=== PATIENT | female | born 2005 | race Caucasian/White ===

== ENCOUNTER 2024-04-30 10:11 | Emergency (ER) | payer OTHER, SELFPAY ==
[2024-04-30 10:19] VITALS: BP 132/88
[2024-04-30 10:54] VITALS: BMI 17.4
[2024-04-30 11:09] LABS: % Basophils 0.4 % (0-2); % Eosinophils 1.2 % (0-6); % Immature Granulocytes 0.3 % (0-0.5); % Lymphocytes 11.3 % (20.5-51.1); % Neutrophils 79.8 % (42.2-75.2); Absolute Basophils 0.1 10^3/uL (0-0.2); Absolute Eosinophils 0.1 10^3/uL (0-0.7); Absolute Lymphocytes 1.3 10^3/uL (1.2-3.4); Absolute Monocytes 0.8 10^3/uL (0.1-0.6); Absolute Neutrophils 9.1 10^3/uL (1.4-6.5); Hematocrit 37.5 % (37.0-47.0); Hemoglobin 12.7 g/dL (12.0-16.0); Mean Corp Hgb Conc. 33.9 g/dL (33.0-37.0); Mean Corpuscular Hgb 28.7 pg (27.0-31.0); Mean Corpuscular Volume 84.7 fL (81.0-99.0); Mean Platelet Volume 9.8 fL (7.4-10.4); Nucleated Red Blood Cells % 0 %; Platelet Count 315 10^3/uL (130-400); Red Blood Cell Count 4.43 10^6/uL (4.20-5.40); Red Cell Dist. Width 13.5 % (11.5-14.5); White Blood Cell Count 11.4 10^3/uL (4.8-10.8)
[2024-04-30 11:37] LABS: HCG, Serum Qualitative Screen Negative
[2024-04-30 11:41] LABS: ALT (SGPT) 15 U/L (0-35); AST (SGOT) 22 U/L (14-36); Albumin 4.6 g/dl (3.5-5.0); Alkaline Phosphatase 75 U/L (38-126); Blood Urea Nitrogen 11 mg/dl (7-17); Carbon Dioxide 26 mmol/L (22-30); Chloride 106 mmol/L (98-107); Estimated Creatinine Clearance 99 ml/min; Glucose 101 mg/dl (70-99); Lipase 40 U/L (23-300); Potassium 4.1 mmol/L (3.5-5.1); Sodium 139 mmol/L (135-145); Total Bilirubin 0.5 mg/dl (0.2-1.3); Total Protein 7.1 g/dl (6.3-8.2); eGFR > 60.00
[2024-04-30 11:57] LABS: Urine Albumin Negative (Neg - Trace); Urine Bilirubin Negative (Negative); Urine Character Clear (Clear); Urine Color Yellow; Urine Glucose Negative (Negative); Urine Ketone Negative (Negative); Urine Leukocyte Trace (Negative); Urine Nitrite Negative (Negative); Urine Occult Blood Negative (Negative); Urine Urobilinogen Negative (Neg - 1+)
[2024-04-30] MEDS: OMNIPAQUE 50 ML PO (12:06)
[2024-04-30 12:18] LABS: Urine Bacteria Few (Negative)
--- NOTE | 2024-04-30 12:57 | ED.GENMED ---
History of Present Illness
General
Chief Complaint: Abdominal Symptoms
Source: patient
Exam Limitations: none
Time Seen by Provider: 04/30/24 11:48
Nursing documentation reviewed up to this point in time: agreed with
History of Present Illness
History of Present Illness:
18-year-old female with no significant past medical history states she has had right-sided abdominal pain for 2 weeks. At that time she was having her period and had cramps and thought it was related to that but her period has been gone for 10 days
and she still has persistent pain in the right side. She denies fever or chills. Pain is accompanied with 'a little' nausea and has had no vomiting. She denies constipation or diarrhea.
Past History
Past History
ED Past Medical History: None
ED Past Surgical History: None
Social History
Tobacco: Smoker
Alcohol: None
Personal: Single
Living: with family
Employment: Employed
Review of Systems
Review of Systems
Allergies reviewed?: Yes
All Other Systems: ROS reviewed and negative except as documented in HPI and ROS
Constitutional: Denies fever
Respiratory: Denies trouble breathing
Cardiac: Denies chest pain
ABD/GI: Reports abdominal pain and nausea; Denies vomiting, diarrhea, constipated, bloody stools, black stools or anorexia
: Reports no symptoms
Musculoskeletal: Reports no symptoms
Skin: Reports no symptoms
Neurological: Reports no symptoms
Phy Exam
Physical Exam
Physical Exam:
GENERAL: No acute distress. A&Ox3.
CONSTITUTIONAL: Afebrile.
EYES: clear, conjunctivae normal
ENMT: moist mucus membranes, Pharynx nl
RESPIRATORY: Regular respirations, nonlabored, lungs clear.
CARDIOVASCULAR: Regular rate and rhythm, no murmurs, no rubs.
GI: Soft, generally tender to palpation of the abdomen, no distention, no guarding, normal BS
MUSCULOSKELETAL: Moves with ease. Well perfused.
SKIN: Warm, dry, pink
PSYCH: Normal mood and affect. Well kept, interactive and appropriate
NEUROLOGIC: Awake, alert and oriented. No focal neurological deficits
Course
Orders/Labs/Results
Orders:
Orders
04/30/24 10:57
IV Insert/Care/Rem.- Treatment PRN
Test Result ONCE
04/30/24 11:02
Complete Blood Count/With Diff Urgent
Comprehensive Metabolic Panel Urgent
HCG, Serum Qualitative Screen Urgent
Comment: Notify provider if positive test present
Lipase Urgent
04/30/24 11:40
Urinalysis Reflex To Culture Urgent
Date Specimen was Collected: 04/30/24
Time Specimen was Collected: 11:27
Urine Microscopic Reflex Cult Urgent
04/30/24 11:59
Iohexol [Omnipaque] See Protocol PO NOW STA
04/30/24 13:33
CT Abd/pel W Iv And Oral Contr Urgent
Comment:
Reason For Exam: right side abd pain
Abnormal Lab Results
04/30/24 04/30/24
11:02 11:40
WBC 11.4 H 10^3/uL
(4.8-10.8)
Absolute Neuts (auto) 9.1 H 10^3/uL
(1.4-6.5)
Absolute Monos (auto) 0.8 H 10^3/uL
(0.1-0.6)
Neutrophils % 79.8 H %
(42.2-75.2)
Lymphocytes % 11.3 L %
(20.5-51.1)
Glucose 101 H mg/dl
(70-99)
Leukocyte Esterase Rfl Trace A
(Negative)
Urine RBC 3-6 A /HPF
(0-2)
Urine Bacteria (Reflex) Few A
(Negative)
04/30/24 11:02
04/30/24 11:02
Vital Signs
Initial and Last Documented VS:
Initial Vital Signs
Temp Pulse Resp BP Pulse Ox
98.0 F 84 16 132/88 98
04/30/24 10:19 04/30/24 10:19 04/30/24 10:19 04/30/24 10:19 04/30/24 10:19
Last Documented Vital Signs
Temp Pulse Resp BP Pulse Ox
98.0 F 81 18 115/61 96
04/30/24 10:19 04/30/24 13:32 04/30/24 13:32 04/30/24 13:32 04/30/24 13:32
Pediatric Nurse Practitioner consulted with Physician
Pediatric Nurse Practitioner consulted with physician?: Yes
Name of Physician Consulted: Krishna
MDM/Problems Addressed
Differential Diagnosis Includes:
Appendicitis, kidney stone, ovarian cyst, colitis
MDM/Problems Addressed:
18-year-old female with no significant past medical history states she has had right-sided abdominal pain for 2 weeks. At that time she was having her period and had cramps and thought it was related to that but her period has been gone for 10 days
and she still has persistent pain in the right side. She denies fever or chills. Pain is accompanied with 'a little' nausea and has had no vomiting. She denies constipation or diarrhea.
Afebrile, NAD, pleasant, appears comfortable
CBC with no clinically significant abnormality
CMP normal
hCG negative
UA: No sign of infection
4:00 p.[address]
CAT scan abdomen pelvis with p.o. and IV contrast radiology results read: IMPRESSION: Mild small bowel dilatation probably due to ileus. No evidence of intestinal obstruction.
Limited evaluation of the distal colon due to lack oral contrast in this region and little intraperitoneal fat
Scoliosis. Known. This is better evaluated by a true scoliosis study.
Pt recently found she was lactose intolerant and ate ice cream last night. Took Ibuprofen with some relief of the pain
Will recommend liquid diet 24 hours, GI follow up. Return instructions reviewed, all questions answered
Gave paper rx for Reglan to use if nausea/vomiting start
Case discussed with Dr. Keller who agrees with plan
*Critical Care Note
Total Time (30-74mins, 75-104mins- exclusive of procedures): Not Applicable
ED Attending Note
-
Portions of this chart may have been created with voice recognition software.� Occasional wrong word or��sound alike� substitutions may have occurred due to the inherent limitations of voice recognition software.
Discharge Plan
Departure
Patient Disposition: Home (Routine Discharge)
Date of Disposition: 04/30/24
Time of Disposition: 16:14
Patient with high blood pressure during this ER visit?: Yes
Condition: Good
Discharge Problem:
Ileus, Abdominal pain
Instructions: Abdominal Pain
Prescriptions:
New
metoclopramide HCl [Reglan] 10 mg tablet
10 mg PO Q8HPRN PRN (Reason: nausea and vomiting) Qty: 9 0RF
No Action
amoxicillin 400 MG/5 ML suspension for reconstitution
120 mg PO BID
fluticasone propionate 1 SPRAY spray,suspension
1 spray intranasal DAILY
promethazine-codeine 5 ML syrup
5 ml PO Q6HPRN PRN (Reason: cough and congestion) Qty: 150 0RF
azithromycin [Zithromax] 100 MG/5 ML suspension for reconstitution
7 ml PO DAILY Qty: 28 0RF
albuterol sulfate 90 MCG/PUFF HFA aerosol inhaler
1 - 2 puff inhalation R Q4HPRN PRN (Reason: cough) Qty: 1 0RF
Referrals:
James Alves DO [Family Provider] -
Rima Jameson MD [Active] - Next open appointment
Activity Restrictions/Additional Instructions:
An ileus is a temporary slowing of the digestive tract mobility, it can lead to a blockage of the intestine, preventing the passage of food, gas and liquids. In your case, inflammation of the bowel can be the cause.
Treatment includes bowel rest so stick with a liquid diet for the next 24 hours, drink plenty of water.
I gave you a prescription for Reglan to stimulate the bowel motility. Use it if you feel nauseous or start to vomit.
Return here immediately for worse pain, fever, vomiting, abdomen distention or feeling sicker in any way.
I provided you with referral to GI doctor to follow up with if your pain lasts more than one more week.
Interventions
Interventions:
*Risk Screen - Suicide Last Done: 04/30/24 10:54
*General Assessment Last Done: 04/30/24 10:54
*Neglect/Abuse Screening Last Done: 04/30/24 10:54
ED- Fall Risk Assessment Last Done: 04/30/24 11:21
*ED COVID-19 Vaccine History Last Done: 04/30/24 10:54
TS-Tukyvd-Lchyfbtpsp Assessment Last Done: 04/30/24 10:56
Discharge Date and Time
Print Language: ITALIAN
[2024-04-30 13:32] VITALS: BP 115/61
[2024-04-30 16:00] VITALS: BP 118/72
== END 2024-04-30 16:42 | disposition home or self-care (01) ==
LOC: EMR 10:11
PROVIDERS: EMERGENCY PHYSICIAN Emergency Medicine; FAMILY PHYSICIAN Family Medicine
DX: R10.9 Unspecified abdominal pain (principal); F17.200 Nicotine dependence, unspecified, uncomplicated; K56.7 Ileus, unspecified
CPT/HCPCS: 99284; 74177; 80053; 81003; 81015; 83690; 84703; 85025; Q9967

== ENCOUNTER 2025-06-20 00:55 | Emergency (ER) | payer OTHER, SELFPAY ==
[2025-06-20 01:03] VITALS: BP 116/80
[2025-06-20 02:00] LABS: HCG, Serum Qualitative Screen Negative
[2025-06-20 02:03] LABS: Hematocrit 37.1 % (37.0-47.0); Hemoglobin 12.4 g/dL (12.0-16.0); Mean Corp Hgb Conc. 33.4 g/dL (33.0-37.0); Mean Corpuscular Volume 81.7 fL (81.0-99.0); Nucleated Red Blood Cells % 0 %; Platelet Count 302 10^3/uL (130-400); Red Cell Dist. Width 14.6 % (11.5-14.5)
[2025-06-20 02:04] LABS: ALT (SGPT) 17 U/L (0-35); AST (SGOT) 20 U/L (14-36); Albumin 4.6 g/dl (3.5-5.0); Alkaline Phosphatase 54 U/L (38-126); Blood Urea Nitrogen 16 mg/dl (7-17); Calcium 9.7 mg/dl (8.4-10.2); Carbon Dioxide 22 mmol/L (22-30); Chloride 107 mmol/L (98-107); Glucose 134 mg/dl (70-99); Lipase 62 U/L (23-300); Potassium 3.6 mmol/L (3.5-5.1); Sodium 139 mmol/L (135-145); Total Protein 7.7 g/dl (6.3-8.2); eGFR > 60.00
--- NOTE | 2025-06-20 04:33 | ED.GENMED ---
History of Present Illness
General
Chief Complaint: Abdominal Pain
Source: patient
Exam Limitations: none
Time Seen by Provider: 06/20/25 04:31
Nursing documentation reviewed up to this point in time: agreed with
History of Present Illness
History of Present Illness:
Note:
CHIEF COMPLAINT(S)
Abdominal pain
HISTORY OF PRESENT ILLNESS
The patient is a 20-year-old female with pmh of lactose intolerance who presenting with abdominal pain that started the previous night around 9 PM. The pain was initially moderate to severe in intensity and progressively worsened. However, by the
time of the consultation, the patient reported that the pain had improved slightly but remained some mild tenderness upon touching her abdomen. The patient described the pain as recurrent, yet the most recent episode was prolonged, lasting around
four hours, during which she experienced multiple episodes of vomiting. Feels like the pain was on the right side. The patient noted a subjective feeling of bloating, mentioning that her stomach felt swollen and tender.
The patient denied any fever within the past week and reported no significant changes in urination, frequency, or urgency. She did not report any symptoms suggesting a urinary tract infection, such as burning during urination or increased frequency.
There was no radiation of pain to the back, but she noted that the pain was concentrating in the abdominal region without specific localization to the right lower quadrant. She denies any sick contacts, diarrhea,
SOCIAL HISTORY
The patient reported that she had eaten dinner the previous evening and was able to keep it down initially, but vomiting occurred later. There was no recent alcohol or recreational drug use reported.
PHYSICAL EXAM
General: Alert, well appearing, no acute distress.
Skin: Warm, dry.
Head: Normocephalic, atraumatic.
Neck: Supple, trachea midline.
Eyes, Ears, Nose, Mouth, and Throat: Oral mucosa moist.
Cardiovascular: Normal peripheral perfusion, No edema. RRR no murmurs.
Respiratory: Respirations are non-labored.
Gastrointestinal: Abdomen nondistended, minimal right sided tenderness, no palpable masses normoactive bowel sounds.
Back: Normal range of motion, Normal alignment.
Musculoskeletal: Normal range of motion, normal strength.
Neurological: Alert and oriented to person, place, time, and situation, No focal neurological deficit observed.
Psychiatric: Cooperative, appropriate mood and affect.
PROBLEM LIST
Acute Problems:
- Abdominal pain
PLAN
-CBC, CMP, urinalysis, lipase, preg screen
-CT ab pelvis with IV contrast
-Patient declining medication for pain at this time
DIFFERENTIAL DIAGNOSIS
The Differential Diagnosis includes, in no particular order and is not limited to:
1. Pyelonephritis
2. Ovarian cyst rupture
3. Appendicitis
4. Gastroenteritis
5. Irritable bowel syndrome
6. Pelvic inflammatory disease
7. Urinary tract infection
8. Constipation
9. Inflammatory bowel disease (e.g., Crohns disease, ulcerative colitis)
10. Ectopic (although less likely given the lack of specific symptoms and context)
Disposition:
SUMMARY OF ENCOUNTER
A 20-year-old female presented to the ER with concerns of nausea, vomiting, and abdominal pain. The pain had been improving since her arrival in the ER without any intervention. On physical examination, she appeared well with minimal tenderness in
the right side of the abdomen. A CT scan was conducted to rule out appendicitis and other acute intramedical pathologies. The CT scan was negative for any acute findings but indicated the possibility of acute gastroenteritis. Labs showed
leukocytosis, likely associated with vomiting and a potential viral infection.
DISPOSITION
Discharge.
ASSESSMENT
Acute gastroenteritis.
PLAN
The patient is advised to stay well-hydrated at home and to follow up with her primary care provider.
INDEPENDENT REVIEW OF LABS AND INTERPRETATION OF TESTS
My independent review of CBC reveals leukocytosis, likely due to vomiting and viral infection.
My independent interpretation of the CT scan indicates findings concerning for acute gastroenteritis, with no acute appendicitis or other significant findings reactive leukocytosis
PATIENT EDUCATION AND COUNSELING
The patient was counseled on the importance of maintaining hydration and signs to monitor for worsening symptoms.
FOLLOW-UP INSTRUCTIONS
The patient should follow up with her primary care provider.
MEDICAL DECISION MAKING
-Complexity of Data Reviewed: Differential diagnosis included appendicitis, acute gastroenteritis, among others.
-Data:
Category 1
Clinical information was reviewed based on labs and CT scan findings.
Category 2
My independent interpretation of the CT scan indicated acute gastroenteritis.
-Risk: Consideration of Admission/Observation: Escalation of care including admission/observation was considered given the complexity and risk of the patients presenting complaint, exam findings, and/or their underlying comorbidities. However,
ultimately I feel the patient is safe for outpatient management with close follow up. Reasoning: Work-up reassuring, does not reveal any acute life/organ threatening processes, patients symptoms well controlled upon reevaluation, reexamination is
reassuring, vitals are stable, patient agreeable with discharge, reliable for follow-up.
DIAGNOSIS
Acute gastroenteritis (ICD-10: A09).
Past History
Past History
ED Past Medical History: None
ED Past Surgical History: None
Social History
Tobacco: Smoker
Alcohol: None
Personal: Single
Living: with family
Employment: Employed
Review of Systems
Review of Systems
All Other Systems: ROS reviewed and negative except as documented in HPI and ROS
Phy Exam
Physical Exam
Physical Exam:
see hpi
Course
Orders/Labs/Results
Orders:
Orders
06/20/25 01:08
Test Result ONCE
06/20/25 01:36
Complete Blood Count/With Diff Urgent
Comprehensive Metabolic Panel Urgent
HCG, Serum Qualitative Screen Urgent
Lipase Urgent
06/20/25 02:42
Abdomen/Pelvis w Contrast CT [CT Abd/pelvis W Iv Cont] Urgent
Comment:
Reason For Exam: abd pain
06/20/25 06:42
Urinalysis Reflex To Culture Urgent
Date Specimen was Collected: 06/20/25
Time Specimen was Collected: 06:25
Urine Microscopic Reflex Cult Urgent
Abnormal Lab Results
06/20/25 06/20/25
01:36 06:42
WBC 16.7 H 10^3/uL
(4.8-10.8)
RDW 14.6 H %
(11.5-14.5)
Abs Immat Gran (auto) 0.1 H 10^3/uL
(0-0.05)
Absolute Neuts (auto) 14.5 H 10^3/uL
(1.4-6.5)
Neutrophils % 86.8 H %
(42.2-75.2)
Lymphocytes % 8.1 L %
(20.5-51.1)
Glucose 134 H mg/dl
(70-99)
Urine Albumin (Reflex) 2+ A
(Neg - Trace)
06/20/25 01:36
06/20/25 01:36
Vital Signs
Initial and Last Documented VS:
Initial Vital Signs
Temp Pulse Resp BP Pulse Ox
97.8 F 74 22 116/80 100
06/20/25 01:03 06/20/25 01:03 06/20/25 01:03 06/20/25 01:03 06/20/25 01:03
Last Documented Vital Signs
Temp Pulse Resp BP Pulse Ox
98.4 F 58 20 116/73 99
06/20/25 07:54 06/20/25 07:54 06/20/25 07:54 06/20/25 07:54 06/20/25 07:54
*Pulse Oximetry
SaO2: 100
Patient hypoxic: no
*Critical Care Note
Total Time (30-74mins, 75-104mins- exclusive of procedures): Not Applicable
ED Attending Note
-
Portions of this chart may have been created with voice recognition software.� Occasional wrong word or��sound alike� substitutions may have occurred due to the inherent limitations of voice recognition software.
Discharge Plan
Departure
Patient Disposition: Home (Routine Discharge)
Date of Disposition: 06/20/25
Time of Disposition: 07:32
Patient with high blood pressure during this ER visit?: Yes
Condition: Good
Discharge Problem:
Acute gastroenteritis
Instructions: Viral gastroenteritis in adults, Abdominal Pain
Prescriptions:
No Action
amoxicillin 400 MG/5 ML suspension for reconstitution
120 mg PO BID
fluticasone propionate 1 SPRAY spray,suspension
1 spray intranasal DAILY
promethazine-codeine 5 ML syrup
5 ml PO Q6HPRN PRN (Reason: cough and congestion) Qty: 150 0RF
azithromycin [Zithromax] 100 MG/5 ML suspension for reconstitution
7 ml PO DAILY Qty: 28 0RF
albuterol sulfate 90 MCG/PUFF HFA aerosol inhaler
1 - 2 puff inhalation R Q4HPRN PRN (Reason: cough) Qty: 1 0RF
metoclopramide HCl [Reglan] 10 mg tablet
10 mg PO Q8HPRN PRN (Reason: nausea and vomiting) Qty: 9 0RF
Referrals:
NONE,* [Family Provider, Internal Medicine]
Stand Alone Forms: Return to Work
Activity Restrictions/Additional Instructions:
Please follow-up with your primary care provider in 1 week for reassessment.
PLEASE RETURN TO THE ER SHOULD YOU DEVELOP ANY ACUTE WORSENING OF YOUR PAIN, INTRACTABLE NAUSEA OR VOMITING, BLOODY STOOLS, LIGHTHEADEDNESS, DIZZINESS, CHEST PAIN OR SHORTNESS OF BREATH, OR ANY OTHER SIGNS OR SYMPTOMS CONCERNING TO YOU.
Interventions
Interventions:
*Risk Screen - Suicide Last Done: 06/20/25 01:03
*General Assessment Last Done: 06/20/25 04:00
*Neglect/Abuse Screening Last Done: 06/20/25 01:03
*ED- Fall Risk Assessment Last Done: 06/20/25 07:53
*ED COVID-19 Vaccine History Last Done: 06/20/25 07:53
*Nursing Disposition Last Done: 06/20/25 07:54
ME-Hhvtlf-Wphuryejcg Assessment Last Done: 06/20/25 04:00
Discharge Date and Time
Discharge Date/Time: 06/20/25 08:01
Print Language: BELARUSIAN
[2025-06-20 06:30] VITALS: BP 116/81
[2025-06-20 07:15] LABS: Urine Character Clear (Clear)
[2025-06-20 07:29] LABS: Urine Red Blood Cell 0-2 /HPF (0-2); Urine Squamous Cell 0-2 /LPF (Few); Urine White Cell 0-2 /HPF (0-5)
[2025-06-20 07:54] VITALS: BP 116/73
== END 2025-06-20 08:01 | disposition home or self-care (01) ==
LOC: EMR 00:55
PROVIDERS: Physician Assistant; EMERGENCY PHYSICIAN Student in an Organized Health Care Education/Training Program
DX: K52.9 Noninfective gastroenteritis and colitis, unspecified (principal); R03.0 Elevated blood-pressure reading, without diagnosis of hypertension; D72.829 Elevated white blood cell count, unspecified; E73.9 Lactose intolerance, unspecified; F17.200 Nicotine dependence, unspecified, uncomplicated
CPT/HCPCS: 99284; 74177; 80053; 81003; 81015; 83690; 84703; 85025; Q9967